=== PATIENT | male | born 1975 | race African-American/Black ===

== ENCOUNTER 2022-06-01 16:17 | Inpatient (IN) | payer MEDICARE, OTHER ==
[2022-06-01] MEDS ORDERED: cloNIDine HCL 0.1 MG TABLET PO ONE (17:10)
[2022-06-01 17:13] VITALS: BMI 28.1
[2022-06-01] MEDS ORDERED: cloNIDine HCL 0.1 MG TABLET ONE (17:15)
[2022-06-01] MEDS ORDERED: BISMUTH SUBSALICYLATE 524 MG/30 ML PO PRN (19:49)
[2022-06-01] MEDS ORDERED: MAGNESIUM HYDROX 2400MG/30ML ORAL SUSPENSION 30 ML CUP PO PRN (19:49)
[2022-06-01] MEDS ORDERED: ONDANSETRON *ODT* 4 MG TABLET SL PRN (19:49)
[2022-06-01] MEDS ORDERED: ACETAMINOPHEN 325 MG TABLET (FP) PO PRN (19:49)
[2022-06-01] MEDS ORDERED: MAG HYDROX/AL HYDROX/SIMETH 30 ML UNIT-DOSE CUP PO PRN (19:49)
[2022-06-01] MEDS ORDERED: BENZOCAINE/MENTHOL (CHLORASEPTIC ) LOZENGE MM PRN (19:49)
[2022-06-01] MEDS ORDERED: MELATONIN 5 MG TABLETS PO PRN (19:49)
[2022-06-01] MEDS ORDERED: NICOTINE POLACRILEX 2 MG GUM BUC PRN (19:49)
[2022-06-01] MEDS ORDERED: DICYCLOMINE HCL 10 MG CAPSULE PO PRN (19:49)
[2022-06-01] MEDS ORDERED: P-EPHED 60MG/TRIPROLIDI 2.5MG TABLET PO PRN (19:49)
[2022-06-01] MEDS ORDERED: NICOTINE 10 MG CARTRIDGE (INHALER) IH PRN (19:49)
[2022-06-01] MEDS ORDERED: guaiFENesin 200 MG/10 ML 10 ML UNIT-DOSE CUPS PO PRN (19:49)
[2022-06-01] MEDS ORDERED: POLYETHYLENE GLYCOL (HEALTHYLAX) 3350 17 GM PACKET PO PRN (19:49)
[2022-06-01] MEDS ORDERED: NALOXONE HCL 0.4 MG/ML VIAL IM PRN (19:49)
[2022-06-01] MEDS ORDERED: LOPERAMIDE HCL 2 MG CAPSULE PO PRN (19:49)
[2022-06-01] MEDS ORDERED: NALOXONE HCL (KLOXXADO) 8 MG SPRAY NS PRN (19:49)
[2022-06-01] MEDS: ATORVASTATIN CA 40 MG TABLET (FP) PO SCH (21:28)
[2022-06-01] MEDS: SPIRONOLACTONE 25 MG TABLET PO SCH (21:28)
[2022-06-01] MEDS: APIXABAN 5 MG TABLET PO SCH (21:28)
[2022-06-01] MEDS: hydrALAZINE HCL 50 MG TABLET (FP) PO SCH (21:29)
[2022-06-01] MEDS: CARVEDILOL 25 MG TABLET (FP) PO SCH (21:29)
[2022-06-01] MEDS: METHOCARBAMOL 500 MG TABLET PO PRN (22:34)
[2022-06-01] MEDS: cloNIDine HCL 0.1 MG TABLET PO SCH (22:39)
[2022-06-01] MEDS: THIAMINE HCL 100 MG TABLET (FP) PO SCH (22:42)
[2022-06-01] MEDS: SACUBITRIL/VALSARTAN 49 MG-51 MG TABLET PO SCH (22:45)
[2022-06-01] MEDS: ISOSORBIDE MONONITRATE 30 MG TAB.SR.24H (FP) PO SCH (22:45)
[2022-06-02] MEDS: ACETAMINOPHEN 325 MG TABLET (FP) PO PRN ×2 (02:39→22:57)
[2022-06-02] MEDS: hydrALAZINE HCL 50 MG TABLET (FP) PO SCH ×3 (05:01→22:56)
[2022-06-02] MEDS: ISOSORBIDE MONONITRATE 30 MG TAB.SR.24H (FP) PO SCH (10:27)
[2022-06-02] MEDS: FUROSEMIDE 40 MG TABLET (FP) PO SCH (10:27)
[2022-06-02] MEDS: APIXABAN 5 MG TABLET PO SCH ×2 (10:28→22:55)
[2022-06-02] MEDS: SACUBITRIL/VALSARTAN 49 MG-51 MG TABLET PO SCH ×2 (10:28→23:01)
[2022-06-02] MEDS: CARVEDILOL 25 MG TABLET (FP) PO SCH ×2 (10:28→22:55)
[2022-06-02] MEDS: cloNIDine HCL 0.1 MG TABLET PO SCH ×2 (10:28→22:55)
[2022-06-02] MEDS: SPIRONOLACTONE 25 MG TABLET PO SCH (10:28)
[2022-06-02] MEDS: PRENATAL VITAMINS W/ FOLIC ACID TABLET (FP) PO SCH (10:30)
[2022-06-02 12:47] LABS: HIV INTERPRETATION NEGATIVE (NEGATIVE)
[2022-06-02] MEDS ORDERED: methaDONE HCL 10 MG TABLET (FOR DETOX USE ONLY) PO ONE (18:04)
[2022-06-02] MEDS: cloNIDine HCL 0.1 MG TABLET PO PRN (18:25)
[2022-06-02] MEDS: METHOCARBAMOL 500 MG TABLET PO PRN (22:55)
[2022-06-02] MEDS: THIAMINE HCL 100 MG TABLET (FP) PO SCH (22:55)
[2022-06-02] MEDS: ATORVASTATIN CA 40 MG TABLET (FP) PO SCH (22:56)
[2022-06-03] MEDS: hydrALAZINE HCL 50 MG TABLET (FP) PO SCH ×3 (05:20→21:55)
[2022-06-03] MEDS ORDERED: methaDONE HCL 10 MG TABLET (FOR DETOX USE ONLY) PO ONE (10:00)
[2022-06-03] MEDS: PRENATAL VITAMINS W/ FOLIC ACID TABLET (FP) PO SCH (10:43)
[2022-06-03] MEDS: APIXABAN 5 MG TABLET PO SCH ×2 (10:43→21:55)
[2022-06-03] MEDS: FUROSEMIDE 40 MG TABLET (FP) PO SCH (10:43)
[2022-06-03] MEDS: CARVEDILOL 25 MG TABLET (FP) PO SCH ×2 (10:44→21:55)
[2022-06-03] MEDS: cloNIDine HCL 0.1 MG TABLET PO SCH ×2 (10:44→21:55)
[2022-06-03] MEDS: ISOSORBIDE MONONITRATE 30 MG TAB.SR.24H (FP) PO SCH (10:45)
[2022-06-03] MEDS: SPIRONOLACTONE 25 MG TABLET PO SCH (10:45)
[2022-06-03] MEDS: SACUBITRIL/VALSARTAN 49 MG-51 MG TABLET PO SCH ×2 (10:50→21:57)
[2022-06-03] MEDS: cloNIDine HCL 0.1 MG TABLET PO PRN (17:04)
[2022-06-03] MEDS: hydrOXYzine PAMOATE 25 MG CAPSULE (FP) PO PRN (17:04)
[2022-06-03] MEDS: METHOCARBAMOL 500 MG TABLET PO PRN (17:04)
[2022-06-03] MEDS: ATORVASTATIN CA 40 MG TABLET (FP) PO SCH (21:57)
[2022-06-03] MEDS: THIAMINE HCL 100 MG TABLET (FP) PO SCH (21:57)
[2022-06-03] MEDS: SUVOREXANT 10 MG TABLET PO PRN (22:00)
[2022-06-04] MEDS: hydrALAZINE HCL 50 MG TABLET (FP) PO SCH ×3 (05:46→21:52)
[2022-06-04] MEDS ORDERED: methaDONE HCL 10 MG TABLET (FOR DETOX USE ONLY) PO ONE (10:00)
[2022-06-04] MEDS: APIXABAN 5 MG TABLET PO SCH ×2 (10:05→21:52)
[2022-06-04] MEDS: PRENATAL VITAMINS W/ FOLIC ACID TABLET (FP) PO SCH (10:05)
[2022-06-04] MEDS: FUROSEMIDE 40 MG TABLET (FP) PO SCH (10:05)
[2022-06-04] MEDS: cloNIDine HCL 0.1 MG TABLET PO SCH ×2 (10:06→21:52)
[2022-06-04] MEDS: SPIRONOLACTONE 25 MG TABLET PO SCH (10:10)
[2022-06-04] MEDS: CARVEDILOL 25 MG TABLET (FP) PO SCH ×2 (10:10→21:52)
[2022-06-04] MEDS: SACUBITRIL/VALSARTAN 49 MG-51 MG TABLET PO SCH ×2 (10:43→21:53)
[2022-06-04] MEDS: ISOSORBIDE MONONITRATE 30 MG TAB.SR.24H (FP) PO SCH (10:43)
[2022-06-04 11:42] LABS: HEMATOCRIT 34.2 % (35.4-49); HEMOGLOBIN 11.1 GM/dL (11.7-16.9); MCH 27.3 pg (25.7-33.7); MCHC 32.6 g/dl (32.0-35.9); MEAN CELL VOLUME 83.6 fl (80-96); MEAN PLT VOLUME 9.7 fl (7.5-11.1); PLATELET COUNT 200 10^3/uL (134-434); RBC 4.08 M/mm3 (4.00-5.60); RDW 15.5 % (11.9-15.9)
[2022-06-04 11:53] LABS: WHITE BLOOD COUNT 1.7 K/mm3 (4.0-10.0)
[2022-06-04 12:07] LABS: CALCIUM 8.3 mg/dL (8.5-10.1)
[2022-06-04 12:08] LABS: ALBUMIN 2.9 g/dl (3.4-5.0); BLOOD UREA NITROGEN 32.2 mg/dL (7-18)
[2022-06-04 12:11] LABS: CREATININE 1.4 mg/dL (0.55-1.3)
[2022-06-04 12:13] LABS: BILIRUBIN,TOTAL 0.3 mg/dL (0.2-1); TOT PROT 6.2 g/dl (6.4-8.2)
[2022-06-04] MEDS: ACETAMINOPHEN 325 MG TABLET (FP) PO PRN (18:57)
[2022-06-04] MEDS: METHOCARBAMOL 500 MG TABLET PO PRN (18:57)
[2022-06-04] MEDS: hydrOXYzine PAMOATE 25 MG CAPSULE (FP) PO PRN (20:23)
[2022-06-04] MEDS: THIAMINE HCL 100 MG TABLET (FP) PO SCH (21:52)
[2022-06-04] MEDS: ATORVASTATIN CA 40 MG TABLET (FP) PO SCH (21:52)
[2022-06-04] MEDS: SUVOREXANT 10 MG TABLET PO PRN (22:27)
[2022-06-05] MEDS: hydrALAZINE HCL 50 MG TABLET (FP) PO SCH (05:25)
[2022-06-05] MEDS ORDERED: methaDONE HCL 10 MG TABLET (FOR DETOX USE ONLY) PO ONE (06:00)
[2022-06-05 06:40] VITALS: RESP 16
[2022-06-05 09:50] VITALS: BP 154/98; PULSE 85; TEMP 96.4
[2022-06-05] MEDS: PRENATAL VITAMINS W/ FOLIC ACID TABLET (FP) PO SCH (10:48)
[2022-06-05] MEDS: cloNIDine HCL 0.1 MG TABLET PO SCH (10:48)
[2022-06-05] MEDS: APIXABAN 5 MG TABLET PO SCH (10:48)
[2022-06-05] MEDS: FUROSEMIDE 40 MG TABLET (FP) PO SCH (10:48)
[2022-06-05] MEDS: SACUBITRIL/VALSARTAN 49 MG-51 MG TABLET PO SCH (10:48)
[2022-06-05] MEDS: SPIRONOLACTONE 25 MG TABLET PO SCH (10:48)
[2022-06-05] MEDS: CARVEDILOL 25 MG TABLET (FP) PO SCH (10:48)
[2022-06-05] MEDS: ISOSORBIDE MONONITRATE 30 MG TAB.SR.24H (FP) PO SCH (10:48)
[2022-06-05 11:23] LABS: BASO % 0.8 % (0-2.0); EOS % 2.3 % (0-4.5); HEMATOCRIT 38.5 % (35.4-49); HEMOGLOBIN 12.2 GM/dL (11.7-16.9); MCH 26.7 pg (25.7-33.7); MCHC 31.7 g/dl (32.0-35.9); MEAN PLT VOLUME 9.1 fl (7.5-11.1); MONO % 6.1 % (3.8-10.2); NEUT % 53.8 % (42.8-82.8); PLATELET COUNT 222 10^3/uL (134-434); RBC 4.59 M/mm3 (4.00-5.60); RDW 15.8 % (11.9-15.9); WHITE BLOOD COUNT 6.6 K/mm3 (4.0-10.0)
[2022-06-05 11:47] LABS: CREATININE 1.4 mg/dL (0.55-1.3)
== END 2022-06-05 10:31 | disposition home or self-care (01) | DRG 773 ==
LOC: YASAS 16:17 → Y3W 17:38 → Y3N 18:26
PROVIDERS: ADMIT Allergy & Immunology; ATTEND Surgery
PROC: HZ2ZZZZ Detoxification Services for Substance Abuse Treatment (ICD-10-PCS; principal; 2022-06-01)
DX: F11.23 Opioid dependence with withdrawal (principal); F19.282 Other psychoactive substance dependence with psychoactive substance-induced sleep disorder; N17.9 Acute kidney failure, unspecified; F17.210 Nicotine dependence, cigarettes, uncomplicated; D72.819 Decreased white blood cell count, unspecified; I11.0 Hypertensive heart disease with heart failure; I50.9 Heart failure, unspecified; I25.2 Old myocardial infarction; R74.01 Elevation of levels of liver transaminase levels; Z95.810 Presence of automatic (implantable) cardiac defibrillator; Z79.01 Long term (current) use of anticoagulants; Z86.73 Personal history of transient ischemic attack (TIA), and cerebral infarction without residual deficits; Z88.8 Allergy status to other drugs, medicaments and biological substances; Z56.0 Unemployment, unspecified; Z59.01 Sheltered homelessness
CPT/HCPCS: 36415; 80053; 82565; 84132; 84520; 85025; 85027; 86780; 87389; 93005; 93010; C9803-CS; U0003; U0005